=== PATIENT | male | born 1970 | race Caucasian/White ===

== ENCOUNTER 2017-02-11 06:30 | Day surgery (SDC) | payer OTHER ==
[~2017-02-11] VITALS: Ht 170.2 cm; Wt 92.7 kg
[2017-02-11] VITALS (12 sets, daily range): BP systolic 84–139; BP diastolic 57–82; PULSE 42–60; TEMP 97.6–98.2
[~2017-02-11 06:30] MED LIST: NORCO 325 MG-51 TAB PO
[2017-02-11 07:26] LABS: HEMOGLOBIN 14.9 g/dl (13.5-18.0)
[2017-02-11 07:39] LABS: CALCIUM 9.2 mg/dL (8.4-10.2); CREATININE, serum 0.82 mg/dL (0.66-1.25)
[2017-02-11] MEDS ORDERED: BENICAR HCT 251 TAB PO (07:52)
[2017-02-12 01:16] VITALS: BP 112/59; PULSE 63; TEMP 98
[2017-02-12 05:35] VITALS: BP 119/71; PULSE 57; TEMP 98
[2017-02-12 09:53] VITALS: BP 140/79; PULSE 61; TEMP 98.9
== END 2017-02-12 13:40 | disposition home or self-care (01) ==
LOC: SDCO 06:30 → SURG 11:20 → SDCO 02-12 13:40
PROVIDERS: Nurse Anesthetist, Certified Registered
DX: C67.9 Malignant neoplasm of bladder, unspecified (principal); N36.8 Other specified disorders of urethra; F32.9 Major depressive disorder, single episode, unspecified; E78.5 Hyperlipidemia, unspecified; I10 Essential (primary) hypertension; Z87.891 Personal history of nicotine dependence; Z83.3 Family history of diabetes mellitus; Z82.49 Family history of ischemic heart disease and other diseases of the circulatory system; Z80.0 Family history of malignant neoplasm of digestive organs
CPT/HCPCS: OP; J0690; J2250; J2405; J2704; J3010; J7120; J9280; Q9967

== ENCOUNTER 2017-04-16 05:51 | Day surgery (SDC) | payer OTHER ==
[~2017-04-16] VITALS: Ht 170.2 cm; Wt 91.4 kg
[~2017-04-16 05:51] MED LIST changes: +BENICAR HCT 251 TAB PO
[2017-04-16] MEDS ORDERED: ATACAND HCT 321 TAB PO (06:19)
[2017-04-16 06:32] VITALS: BP 129/90; PULSE 51; TEMP 97.9
[2017-04-16 08:15] VITALS: BP 110/75; PULSE 60; TEMP 97.6
[2017-04-16 08:30] VITALS: BP 118/67; PULSE 65
[2017-04-16 08:45] VITALS: BP 107/73; PULSE 64
[2017-04-16 12:52] VITALS: PULSE 65
== END 2017-04-16 09:00 | disposition home or self-care (01) ==
LOC: SDCO 05:51
DX: Z12.11 Encounter for screening for malignant neoplasm of colon (principal); K57.30 Diverticulosis of large intestine without perforation or abscess without bleeding; I10 Essential (primary) hypertension; Z80.0 Family history of malignant neoplasm of digestive organs
CPT/HCPCS: J2250; J3010; J7030

== ENCOUNTER 2020-11-13 13:01 | Emergency (ER) | payer OTHER ==
[~2020-11-13] VITALS: Ht 167.6 cm; Wt 93.2 kg
[~2020-11-13 13:01] MED LIST changes: +ATACAND HCT 321 TAB PO
[2020-11-13 13:04] VITALS: TEMP 98.5
[2020-11-13] MEDS ORDERED: CEPHALEXIN500 M1 PO (14:59)
[2020-11-13] MEDS ORDERED: ROBAXIN 50500 MG/TAB PO (14:59)
[2020-11-13 15:15] VITALS: BP 134/88; PULSE 73
== END 2020-11-13 15:15 | disposition home or self-care (01) ==
LOC: COL.ER 13:01
DX: S09.90XA Unspecified injury of head, initial encounter (principal); S01.112A Laceration without foreign body of left eyelid and periocular area, initial encounter; S16.1XXA Strain of muscle, fascia and tendon at neck level, initial encounter; W20.8XXA Other cause of strike by thrown, projected or falling object, initial encounter